=== PATIENT | female | born 1965 | race Caucasian/White ===

== ENCOUNTER → 2021-05-07 | Outpatient (CLI) | payer BC ==
--- NOTE | 2021-05-07 09:21 | Diagnostic Imaging Report ---
INDICATION: Right knee pain. COMPARISON: None available TECHNIQUE: 3 radiographs of the right knee dated 05/07/2021 FINDINGS: No acute fracture or dislocation. No destructive osseous process. Mild medial joint space narrowing. Lateral compartment is well maintained. Small calcific density is noted adjacent to the lateral tibial spine on the frontal radiograph. No joint effusion. IMPRESSION: No acute fracture with mild degenerative changes present. Calcifications associated with the lateral tibial spine, which may relate to spurring of the tibial spine versus possibly a tiny loose body. Dictated by: Dictated on workstation # [id number]
== END ==
LOC: RAD FS 08:51
PROVIDERS: ATTEND Nurse Practitioner
DX: M17.11 Unilateral primary osteoarthritis, right knee (principal); M53.80 Other specified dorsopathies, site unspecified
CPT/HCPCS: 73562